=== PATIENT | male | born 1955 | race Caucasian/White ===

== ENCOUNTER 2016-05-14 09:02 | Day surgery (SDC) | payer OTHER ==
[~2016-05-14] VITALS: Ht 182.9 cm; Wt 127.0 kg
[~2016-05-14 09:02] MED LIST: ASPIR-LOW81 MG PO; CALCIUM 500 MG1 EACH PO; LISINOPRIL20 MG PO; MULTIVITAMIN1 EAC2 PO; ROPINIROLE HCL0.5 MG PO; SIMVASTATIN20 MG PO; ZYRTEC10 M3 PO
== END 2016-05-14 17:35 | disposition home or self-care (01) ==
LOC: CATH 09:02
PROC: B2111ZZ Fluoroscopy of Multiple Coronary Arteries using Low Osmolar Contrast (ICD-10-PCS; principal; 2016-05-14)
DX: I25.10 Atherosclerotic heart disease of native coronary artery without angina pectoris (principal); R07.2 Precordial pain; I49.3 Ventricular premature depolarization; I10 Essential (primary) hypertension; E78.5 Hyperlipidemia, unspecified; I27.2 Other secondary pulmonary hypertension; Z79.82 Long term (current) use of aspirin
CPT/HCPCS: C1769; C1887; J1644; J2250; J3010